=== PATIENT | female | born 1950 | race Caucasian/White ===

== ENCOUNTER → 2016-08-22 | Outpatient (CLI) | payer OTHER ==
[~2016-08-22] MED LIST: ACCUPRIL40 MG; ACID CONTROL75 MG; ASPIRIN EC81 M1; CAL-MAG-ZINC T1 EACH PO; CALCIUM; CIPRO500 MG PO; CIPROFLOXACIN500 M1 PO; DIFLUCAN150 MG PO; LEVAQUIN 500 M500 MG PO; MACROBID 100 M100 M1 PO; MAGNES; NORCO 5-325 TA1 EACH PO; OSTEO BI-FLEX1 EAC1 PO; SIMVASTATIN10 MG; TRICOR145 MG; VITAMIN D1000 UNI1; VITAMINC500; ZOFRAN4 MG PO; zinc
--- NOTE | ~2016-08-22 | P ---
[facility] [place] [address] PROCEDURE REPORT Name: FARRUKH PARISI Room #: REG [facility].#: [id number] Admission: 08/22/16 Attend Phys: Nam Barrett Discharge: Date of : 46 Report #: [id number] THIS REPORT FOR: //name// CC: Nam Mccracken MD DATE OF SERVICE: 08/22/2016 PROCEDURE PERFORMED: Colonoscopy with biopsies. HISTORY OF PRESENT ILLNESS: The patient is a 66-year-old female who had an episode of bright red blood per rectum in June, lasted one day, and was not associated with abdominal pain, diarrhea or constipation. The patient has never had a colonoscopy. No family history of colon cancer. DESCRIPTION OF PROCEDURE: The risks and benefits of the procedure were explained to the patient, those risks including, but not limited to bleeding, perforation, the risk of sedation. She understood these risks and gave informed consent. Sedation was given using propofol per anesthesia. Next, a digital rectal exam was initially performed, which was normal. Next, using a standard SGBinon colonoscope, the scope was placed in the patient's anus and advanced under direct vision to the cecum. The overall prep was excellent. In the cecum, there was a 3-mm sessile polyp, this was removed with cold forceps, otherwise normal. The ileocecal valve was normal. Ascending colon was normal. In the transverse colon, a 5-mm sessile polyp was noted, this was also removed with cold forceps, otherwise normal. Descending colon was normal. Multiple diverticula without evidence of bleeding were noted in the sigmoid colon. The rectal mucosa was normal. On retroflexion, small nonbleeding internal hemorrhoids were noted. Close examination of the anal canal showed a small anal fissure, no bleeding. The scope was then withdrawn and the procedure terminated. The patient tolerated the procedure well. IMPRESSION: 1. Colonic polyps. 2. Sigmoid diverticulosis. 3. Internal hemorrhoids. 4. Small anal fissure. 5. Otherwise, normal colonoscopy. RECOMMENDATIONS: 1. Await biopsy results. 2. Suspect bleeding was either from anal fissure or internal hemorrhoids. We would recommend Analpram b.i.d. for 2 weeks and then on a p.r.n. basis. 3. If polyps are hyperplastic, repeat colonoscopy in 10 years. If adenomatous polyps, repeat in [address] [address] PROCEDURE REPORT Name: FARRUKH PARISI Room #: REG [facility] Lyn#: [id number] Admission: 08/22/16 Attend Phys: Nam Barrett Discharge: Date of : 46 Report #: [id number] Thank you for allowing me to participate in her care. <ELECTRONICALLY SIGNED> By: Nam Church MD 08/27/16 1539 0900 1 Nam Church, /chano
--- NOTE | ~2016-08-22 | S ---
[facility] [place] [address] SURGICAL PATH RPT PROCEDURE Name: FARRUKH PARISI Room #: REG [facility]..#: [id number] Admission: 08/22/16 Date of : 46 Discharge: Report #: [id number] Path Case #: [id number] PATHOLOGY REPORT COLLECTION DATE: 08/22/2016 RECEIVED DATE: 08/23/2016 SUBMITTING PHYS: Dr. Nam Church OTHER PHYS: Dr. Elizabeth Oh SPECIMEN(S) RECEIVED: A.Polyp cecum B.Polyp transverse colon * * * * * * * * * * * * FINAL DIAGNOSIS: A. "Polyp cecum", biopsy: - Tubular adenoma; no high grade dysplasia. B. "Polyp transverse colon", biopsy: - Tubular adenoma; no high grade dysplasia. (CLW:arpan; d/t: 08/24/2016) PATHOLOGIST: Aure Gray M.D. REPORT ELECTRONICALLY SIGNED BY: Aure Gray M.D. DATE/TIME: 08/24/2016 12:21 * * * * * * * * * * * * GROSS PATHOLOGY: A. Received in formalin labeled "Jayme, Farrukh and polyp cecum," are 2 segments of wayne soft tissue measuring 0.5 x 0.2 x 0.2 cm in aggregate dimensions and measuring 0.2 and 0.3 cm in maximum dimension. The specimen is submitted entirely in cassette A1. B. Received in formalin labeled "Jayme, Farrukh and polyp transverse colon," are 5 segments of wayne soft tissue measuring 0.8 x 0.2 x 0.2 cm in aggregate dimensions and ranging from 0.1 to 0.2 cm in maximum dimension. The specimen is submitted entirely in cassette B1. (TTL; 08/23/2016) CLINICAL HISTORY: Rectal bleeding INITIAL CPT CODE(S): A; 19658 B; 27999 [facility] [address] [address] SURGICAL PATH RPT PROCEDURE Name: FARRUKH PARISI Room #: [facility]..#: [id number] Admission: 08/22/16 Date of : 46 Discharge: Report #: [id number] Path Case #: [id number] [address] [facility] , [place] [address] Technical services performed by [facility] at [address] [place] [address], [facility] [address] [address]. [facility] [place] [address] PHONE: [phone] DIRECTOR: Tin Cabral M.D. * * * END OF REPORT * * *
== END | disposition home or self-care (01) ==
LOC: GI 07:05
DX: K63.5 Polyp of colon (principal); K57.30 Diverticulosis of large intestine without perforation or abscess without bleeding; K64.8 Other hemorrhoids; K60.2 Anal fissure, unspecified
CPT/HCPCS: 62110; 62900